=== PATIENT | male | born 1940 | race Caucasian/White ===

== ENCOUNTER 2022-12-01 13:52 | Emergency (ER) | payer MEDICARE ==
[~2022-12-01] VITALS: Wt 74.8 kg
[2022-12-01] MEDS ORDERED: METFORMIN XR500 MG PO (14:17)
[2022-12-01] MEDS ORDERED: LIPITOR40 MG PO (14:18)
[2022-12-01] MEDS ORDERED: ELIQUIS5 M1 PO (14:18)
[2022-12-01] MEDS ORDERED: DILTIAZEM240 M1 PO (14:19)
[2022-12-01] MEDS ORDERED: CLOPIDOGREL75 MG PO (14:20)
[2022-12-01] MEDS ORDERED: ALPRAZOLAM0.25 M2 PO (14:21)
[2022-12-01] MEDS ORDERED: TAMSULOSIN HCL0.4 MG PO (14:21)
[2022-12-01] MEDS ORDERED: TYLENOL EXTRA500 MG PO (14:22)
[2022-12-01] MEDS ORDERED: ACETAMINOPHEN-1 EAC1 PO (16:51)
[2022-12-01] MEDS ORDERED: Orphenadrine C100 MG PO (16:51)
== END 2022-12-01 17:07 | disposition home or self-care (01) ==
LOC: ED 13:52
DX: M47.812 Spondylosis without myelopathy or radiculopathy, cervical region (principal)

== ENCOUNTER → 2023-02-04 | Outpatient (CLI) | payer MEDICARE ==
[~2023-02-04] MED LIST: ACETAMINOPHEN-1 EAC1 PO; ALPRAZOLAM0.25 M2 PO; CLOPIDOGREL75 MG PO; DILTIAZEM240 M1 PO; ELIQUIS5 M1 PO; LIPITOR40 MG PO; METFORMIN XR500 MG PO; Orphenadrine C100 MG PO; TAMSULOSIN HCL0.4 MG PO; TYLENOL EXTRA500 MG PO
== END | disposition home or self-care (01) ==
LOC: RESCLI 01:20
PROVIDERS: ATTEND Internal Medicine
DX: I48.91 Unspecified atrial fibrillation (principal); E11.9 Type 2 diabetes mellitus without complications; N40.0 Benign prostatic hyperplasia without lower urinary tract symptoms; I25.10 Atherosclerotic heart disease of native coronary artery without angina pectoris; T14.8XXA Other injury of unspecified body region, initial encounter; F41.9 Anxiety disorder, unspecified; I10 Essential (primary) hypertension; E78.2 Mixed hyperlipidemia; E55.9 Vitamin D deficiency, unspecified; Z79.899 Other long term (current) drug therapy; J30.2 Other seasonal allergic rhinitis; X58.XXXA Exposure to other specified factors, initial encounter; Y93.89 Activity, other specified; Y92.89 Other specified places as the place of occurrence of the external cause; Y99.8 Other external cause status

== ENCOUNTER 2024-04-28 02:08 | Emergency (ER) | payer MEDICARE ==
[2024-04-28] MEDS ORDERED: Gelatin Sponge 1 EACH SPON T ONE (02:20)
== END 2024-04-28 02:40 | disposition home or self-care (01) ==
LOC: ED 02:08
DX: S81.801A Unspecified open wound, right lower leg, initial encounter (principal); Z79.899 Other long term (current) drug therapy; W18.39XA Other fall on same level, initial encounter; Y93.89 Activity, other specified; Y92.89 Other specified places as the place of occurrence of the external cause; Y99.8 Other external cause status

== ENCOUNTER 2024-09-13 10:33 | Emergency (ER) | payer MEDICARE ==
[~2024-09-13] VITALS: Ht 162.5 cm; Wt 77.2 kg
[2024-09-13] MEDS ORDERED: Acetaminophen/Oxycodone 5 MG/325 MG TABLET PO ONE (10:50)
[2024-09-13] MEDS ORDERED: TRAMADOL HCL50 MG PO (11:21)
== END 2024-09-13 11:31 | disposition home or self-care (01) ==
LOC: ED 10:33
DX: S83.91XA Sprain of unspecified site of right knee, initial encounter (principal); S20.211A Contusion of right front wall of thorax, initial encounter; M54.2 Cervicalgia; M19.90 Unspecified osteoarthritis, unspecified site; I10 Essential (primary) hypertension; I48.91 Unspecified atrial fibrillation; E11.9 Type 2 diabetes mellitus without complications; W10.8XXA Fall (on) (from) other stairs and steps, initial encounter; Y93.89 Activity, other specified; Y92.009 Unspecified place in unspecified non-institutional (private) residence as the place of occurrence of the external cause; Y99.8 Other external cause status

== ENCOUNTER → 2025-02-09 | Outpatient (CLI) | payer MEDICARE ==
[~2025-02-09] MED LIST changes: +TRAMADOL HCL50 MG PO
== END | disposition home or self-care (01) ==
LOC: RESCLI 01:46
PROVIDERS: ATTEND Student in an Organized Health Care Education/Training Program
DX: I48.91 Unspecified atrial fibrillation (principal); F41.9 Anxiety disorder, unspecified; E11.9 Type 2 diabetes mellitus without complications; I10 Essential (primary) hypertension; E78.5 Hyperlipidemia, unspecified; N40.0 Benign prostatic hyperplasia without lower urinary tract symptoms; Z79.899 Other long term (current) drug therapy; Z98.890 Other specified postprocedural states